=== PATIENT | female | born 1940 | race American Indian/Alaskan Native ===

== ENCOUNTER 2018-05-06 19:43 | Inpatient (IN) | payer MEDICARE, OTHER ==
[~2018-05-06] VITALS: Ht 165.1 cm; Wt 68.0 kg
[~2018-05-06 19:43] MED LIST: ALENDRONATE SOD70 MG PO; ALLEGRA ALLERG180 MG PO; AROMASIN25 MG PO; ASPIRIN325 MG PO; BETAMETHASONE D15 G2 TOP; BISMATROL262 MG PO; CALCIUM + VITA1 EAC1 PO; COLACE100 MG PO; CRESTOR10 MG PO; CYANOCOBAL1000 MCG/M IM; DOXYCYCLINE HY100 MG PO; FOLIC ACID1 MG PO; GLIPIZIDE XL5 MG PO; HAIR, SKIN & N1 EACH PO; HYDROCHLOROTHIA25 MG PO; JANUMET 50-1,01 EACH PO; LISINOPRIL40 MG PO; LOTRIMIN15 GM TP; MACROBID 100 M100 MG PO; MAG-OXIDE400 MG PO; METHOTREXATE2.5 MG PO; NORCO 5-325 TA1 EACH PO; OTEZLA30 MG PO; PERCOCET 7.5-31 EACH PO; PLAVIX75 MG PO; PRADAXA75 MG; PRILOSEC20 MG PO; PSEUDOEPHEDRINE60 MG PO; SYNTHROID25 MCG PO; VITAMIN B122500 MCG PO; VITAMIN D5000 UNIT PO; ZESTRIL20 MG PO
--- NOTE | 2018-05-07 00:10 | NUR ---
PT ADMITTED TO CCU AT 2255. IS ALERT ORIENTED X3. DENIES PAIN OR NAUSEA AT THIS TIME. DOES STATE IS COLD AND GIVEN WARM BLANKET. NS STARTED AT 250ML/HR, LEVAQUIN STARTED. LEVOPHED WAS STARTED AT 2310 AT 5MCG/MIN INCREASED TO 6 MCG/MIN AT 2330 BP CONT TO BE DEC. GIVEN WATER WITHOUT PROBLEM. T 100.9 GIVEN 650MG TYLENOL PO. DR WOODY GIVEN UPDATE AND FLUIDS INC TO GIVEN THIS L NS NOW.
--- NOTE | 2018-05-07 01:23 | NUR ---
PT DENIES NEEDS TO VOID. BLADDER SCANNED FOR 74ML. WILL HOLD STROUD FOR NOW AND CONT IVF.
--- NOTE | 2018-05-07 02:19 | NUR ---
PT RESTING. CONT ON LEVOPHED AT 6MCG/MIN.
--- NOTE | 2018-05-07 03:06 | NUR ---
SLEEPING. LEVOPHED DEC TO 5MCG/MIN. BP 108/56.
--- NOTE | 2018-05-07 04:13 | NUR ---
AWAKENED FOR ASSESSMENT. DENIES NEED TO VOID. SCANNED BLADDER FOR 195ML. DR WOODY NOTIFIED. WILL CONT IFV AT 250ML/HR.
--- NOTE | 2018-05-07 06:05 | NUR ---
LEVOPHED TITRATED TO 3MCG THEN OFF AT 0500. BP NOW 88/49 AND LEVOPHED RESTARTED AT 4MCG/MIN. PT SLEEPING.
--- NOTE | 2018-05-07 06:41 | NUR ---
RESTFUL, LAB DRAWN. LEVOPHED AT 2MCG/MIN.
--- NOTE | 2018-05-07 07:12 | EKG ---
[facility] [address] [place] [address] Signed Sinus tachycardia with occasional ventricular-paced complexes and premature atrial complexes with aberrant conduction Left axis deviation Minimal voltage criteria for LVH, may be normal variant Inferior-posterior infarct , age undetermined Anterior infarct , age undetermined Abnormal ECG No previous ECGs available Confirmed by LUPE WOODY MD ([id number]) on 05/07/2018 7:11:52 AM Electronically Signed By: LUPE WOODY MD 05/07/18 0712 PATIENT NAME: MIRIAN REDD Electrocardiogram DATE OF : 44 PHYSICIAN: LUPE WOODY MD REPORT #: [id number] REPORT IS CONFIDENTIAL AND NOT TO BE RELEASED WITHOUT AUTHORIZATION
--- NOTE | 2018-05-07 07:30 | NUR ---
report recieved. IS RESTFUL IN BED, DENIES PAIN, NAUSEA, SHORTNESS OF BREATH. BREAKFAST ORDERED. LEVOPHED GTT AT 2 MCG/MIN. IVF INFUSING AT 250 ML/HR.
--- NOTE | 2018-05-07 08:00 | NUR ---
ASSESSMENT DONE. DR. WOODY HERE TO SEE PATIENT. ROUTINE MEDS GIVEN.
--- NOTE | 2018-05-07 08:30 | NUR ---
SITTING UP IN BED FOR BREAKFAST, ACCUCHECK-81.
--- NOTE | 2018-05-07 08:39 | NUR ---
DR WOODY AWARE ON LABS.
--- NOTE | 2018-05-07 09:08 | NUR ---
PATIENT SITTING UP IN BED VISITING WITH FAMILY MEMBERS.
--- NOTE | 2018-05-07 09:45 | NUR ---
RESTFUL. RESP EQUAL AND NON-LABORED. HAS MILD NON-PRODUCTIVE COUGH.
--- NOTE | 2018-05-07 10:40 | NUR ---
UP TO COMMODE WITH ASSIST TO EXPELL URINE WITH SMALL STOOL, IS VERY WEAK ON FEET. DENIES DIZZINESS. SPONGE BATH GIVEN WHILE UP.
--- NOTE | 2018-05-07 10:50 | NUR ---
BACK TO BED WITH ASSIST. REMAINS ON LEVOPHED GTT AT 2 MCG/MIN INFUSING TO RAC.
--- NOTE | 2018-05-07 12:00 | NUR ---
LEVOPHED GTT DECREASED TO 1 MCG/MIN. ASSESSMENT DONE. PATIENT IS TIRED, DENIES PAIN.
--- NOTE | 2018-05-07 14:30 | NUR ---
BP-102/55 (67). LEVOPHED GTT TURNED OFF.
--- NOTE | 2018-05-07 15:00 | NUR ---
UP TO CHAIR WITH ASSIST, DENIES DIZZINESS.
--- NOTE | 2018-05-07 16:25 | NUR ---
IVF DECREASED TO 75 ML/HR PER DR. DAMON ORDERS.
--- NOTE | 2018-05-07 16:35 | NUR ---
DR. DAMON UPDATED ON PATIENT VITAL SIGNS, IS AWARE THAT LEVOPHED GTT OFF AT 1500.
--- NOTE | 2018-05-07 18:00 | NUR ---
UP TO COMMODE TO HAVE MIXED URINE WITH STOOL. TOTAL OUTPUT 200 ML.
--- NOTE | 2018-05-07 20:19 | NUR ---
RESTING IN BED, NO C/O, DENIES PAIN OR NAUSEA. EXPLAINED THAT THE SOURCE OF SEPSIS WAS STILL UNKOWN. GIVEN SODA, IS VISITING WITH FAMILY.
--- NOTE | 2018-05-07 21:30 | NUR ---
BS 132. PT STATES SHE WILL NEED TO GO TO BR IN A LITTLE WHILE. NO OTHER CHANGES.
--- NOTE | 2018-05-07 23:07 | NUR ---
PT DID EAT SMALL AMT OF RICE FROM FAMILIES TAKE OUT. UP TO BEDSIDE COMMODE WITH 1 PERSON ASSIST. PT IS VERY WEAK. STATES THIS WEAKNESS STARTED WHEN SHE BECAME SICK. VOIDED 150ML DARK, TEA COLORED URINE. DID HAVE DRY COUGH WHILE UP.
--- NOTE | 2018-05-08 00:49 | NUR ---
PT NOTED TO NOT BE SLEEPING. GIVEN 650MG TYLENOL FOR COMFORT AND TO HELP WITH SLEEP. STATES NOSE IS SOMEWHAT STUFFY.
--- NOTE | 2018-05-08 01:31 | NUR ---
SLEEPING AT THIS TIME.
--- NOTE | 2018-05-08 03:59 | NUR ---
PT AWAKE, ASSESSMENT DONE. HAS NO C/O.
--- NOTE | 2018-05-08 06:05 | NUR ---
AWAKE, UP TO BSC TO VOID TEA COLORED URINE. STRONGER GETTING OUT OF BED THIS TIME, STATES SHE FEELS LESS SHAKEY. HAS APPETITE AND IS LOOKING FORWARD TO BREAKFAST.
--- NOTE | 2018-05-08 07:30 | NUR ---
report recieved. PT IS RESTFUL IN BED. DENIES PROBLEMS.
--- NOTE | 2018-05-08 07:45 | NUR ---
UP TO CHAIR FOR BREAKFAST. IS STRONGER ON FEET TODAY.
--- NOTE | 2018-05-08 08:05 | NUR ---
AWARE OF LABS, AND U/O.
--- NOTE | 2018-05-08 08:34 | NUR ---
IVF INFUSING AT 75 ML/HR. IS IN CHAIR WATCHING TV. TOOK BREAKFAST WELL.DENIES NAUSEA, PAIN.
--- NOTE | 2018-05-08 09:10 | NUR ---
AMBULATED IN HALLWAY USING WALKER. WALKED FROM ROOM 128 TO JUST PAST ROOM 130 THEN BACK TO ROOM. TOLERATED WELL. STATES LEGS ARE TIRED AND IS SLIGHTLY SHORT OF BREATH. BACK TO BED.
--- NOTE | 2018-05-08 09:50 | NUR ---
DR. DAMON HERE TO SEE PATIENT, ORDERS RECIEVED. CT OF ABD/PELVIS ORDERED.
--- NOTE | 2018-05-08 10:00 | NUR ---
ORAL CONTRAST GIVEN.
--- NOTE | 2018-05-08 12:00 | NUR ---
ASSESSMENT DONE, CONT TO TAKE CONTRAST.
--- NOTE | 2018-05-08 13:10 | NUR ---
TO CT VIA BED, NURSING WEB DESIGNER WITH PATIENT.
--- NOTE | 2018-05-08 13:40 | NUR ---
RETURN TO ROOM 129. TOEL[address] CT WELL.
--- NOTE | 2018-05-08 14:20 | NUR ---
AMBULATED TO SHOWER.
--- NOTE | 2018-05-08 15:00 | NUR ---
TOLERATED SHOWER WELL.
--- NOTE | 2018-05-08 15:08 | NUR ---
Walked pt. over from ccu to room 113 at 1505. Got her settled in bed with a warm blanket. vital signs stable and pt is in good spirits. Got her dinner ordered for her. call light in reach.
--- NOTE | 2018-05-08 15:10 | NUR ---
AMBULATED TO ROOM 113 FROM SHOWER. REPORT GIVEN.
--- NOTE | 2018-05-08 16:08 | NUR ---
pt arrived to room 113 from ccu at 1530. at bedside. no needs at this time. patient awake, sitting up in bed watching television.
--- NOTE | 2018-05-08 18:44 | NUR ---
PATIENT IS ALERT AND ORIENTED. 1 PA, FWW. SALINE LOCKED. ACCU CHECK. BLOOD GLUCOSE CHECKED AT 1700, B. SLOW TO RESPOND TO ANSWERS. CULTURES PENDING. EDEMA IN LOWER EXTREMITIES. NO VOID SINCE TRANSFER.
--- NOTE | 2018-05-08 19:15 | NUR ---
IN ROOM FOR REPORT, PT IS AWAKE IN BED. SHE DENIES NEEDS AT THIS TIME. CALL LIGHT IS WITHIN REACH.
--- NOTE | 2018-05-08 22:15 | NUR ---
IN ROOM TO ASSESS PT, HER BG WAS 73. PT DENIES ANY SX AND GRAPES SHE HAD IN [place] WERE GIVEN TO HER A SNACK. SHE DENIES PAIN AND DIZZINESS AND REPORTS HER WEAKNESS IS IMPROVING. SHE IS SLOW TO RESPOND WHEN ASKED QUESTIONS BUT IS ALERT AND ORIENTED. SHE REPORTS NUMBESS IN HER TOES AT BASELINE. CALL LIGHT IS WITHIN REACH AND SHE DENIES FURTHER NEEDS. FRESH ICEWATER IS AT BEDSIDE AND SHE HAS VISITORS IN THE ROOM.
--- NOTE | 2018-05-08 23:16 | NUR ---
ASSISTED PT TO BATHROOM, WITH FWW. NEEDED HELP GETTING RIGHT LEG OFF BED, AND PUTTING BOTH LEGS INTO BED. CALL LIGHT WITHIN REACH, LIGHTS OFF. NO OTHER NEEDS AT THIS TIME.
--- NOTE | 2018-05-09 00:55 | NUR ---
PT IS AWAKE IN BED, SHE STATES SHE IS CONGESTED AND HAVING TROUBLE SLEEPING. ORDERED NASAL SPRAY AND WILL ADMINISTER ONCE AVAILABLE FROM PHARMACY.
--- NOTE | 2018-05-09 02:56 | NUR ---
PT IS RESTING WITH EYES CLOSED, RESPIRATIONS ARE EVEN AND NONLABORED. CALL LIGHT IS WITHIN REACH.
--- NOTE | 2018-05-09 03:47 | NUR ---
PT REPORTED BEING COLD, TOOK TEMP WHICH IS 97.3 AND BROUGHT HER A WARM BLANKET. PT DENIES PAIN AT THIS TIME. CALL LIGHT IS WITHIN REACH.
--- NOTE | 2018-05-09 05:34 | NUR ---
PT WAS TRANSFERED FROM CCU YESTERDAY. SHE DENIES PAIN. IV'S ARE SL WITH IV LEVAQUIN DAILY. SHE IS A 1PA WITH FWW. SHE HAS AN ADA DIET WITH ACCUCHKEHINDE BECERRIL, HER BS WAS 73 LAST NIGHT AND SHE WAS GIVEN GRAPES A SNACK. SHE IS VOIDING WELL. SHE COMPLAINED OF NASAL CONGESTION WAS GIVEN NASAL SPRAY. SHE HAS PITTING EDEMA IN BILAT LE.
--- NOTE | 2018-05-09 06:30 | NUR ---
IN ROOM TO ADMINISTER ABX. FRESH WATER IS AT BEDSIDE AND PT DENIES NEEDS AT THIS TIME. CALL LIGHT IS WITHIN REACH.
--- NOTE | 2018-05-09 07:53 | NUR ---
REPORT FROM FUNMI TO. PT BS LOW WHILE RNS IN ROOM, GIVEN APPLE JUICE AND BREAKFAST. WILL REASSESS IN 15MIN.
--- NOTE | 2018-05-09 08:15 | NUR ---
PT GIVEN MEDS AND ASSESSMENT DONE. PT BS 85 NOW, CONTINUE TO MONITOR.
--- NOTE | 2018-05-09 11:02 | NUR ---
ROUNDED ON PATIENT FOR MEDICATION ADMINISTRATION. RESTING COMFORTABLY IN CHAIR. POSSESSIONS AT BEDSIDE.
--- NOTE | 2018-05-09 11:52 | NUR ---
pt sitting up in recliner. alert and oriented. blood sugar checked 69, lunch at bedside. no sliding scale insulin to be administered at this time
--- NOTE | 2018-05-09 12:56 | NUR ---
ROUNDED ON PATIENT AND ASSESSED BG DUE TO A PREVIOUS LOW BG. REASSESSED B. PATIENT SITTING UP IN CHAIR WITH VISITORS AT BEDSIDE. WILL CONTINUE TO MONITOR.
--- NOTE | 2018-05-09 13:01 | NUR ---
PT SITTING IN CHAIR-SEEMED EITHER BEWILDERED, PREOCCUPIED OR SUPPRISED BY MY VISIT. VERY SHORT ANSWERS TO MY QUESTIONS. EXTENDED A BLESSING, WILL CONTINUE TO FOLLOW
[2018-05-09] MEDS ORDERED: ASPIRIN EC81 MG PO (14:22)
[2018-05-09] MEDS ORDERED: ENSTILAR 0.005%60 GM TOP (14:23)
[2018-05-09] MEDS ORDERED: CALCIUM 600 +1 EAC3 PO (14:25)
[2018-05-09] MEDS ORDERED: CERAVE355 ML TOP (14:26)
[2018-05-09] MEDS ORDERED: VITAMIN B-12500 MCG PO (14:27)
[2018-05-09] MEDS ORDERED: FLONASE ALLERG9.9 ML NAS (14:30)
[2018-05-09] MEDS ORDERED: TALTZ AUTO80 MG/1 ML SUB-Q (14:33)
--- NOTE | 2018-05-09 14:39 | NUR ---
MED REC COMPLETE WITH [facility] MEDICATION RECORDS.
--- NOTE | 2018-05-09 15:53 | NUR ---
ROUNDED ON PATIENT FOR AFTERNOON ASSESSMENT. RESTING COMFORTABLY IN BED WITH FAMILY AT BEDSIDE. NO COMPLAINTS OF PAIN. CALL LIGHT WITHIN REACH. POSSESSIONS AT BEDSIDE. WEARING DENTURES. WILL CONTINUE TO MONITOR.
--- NOTE | 2018-05-09 17:30 | NUR ---
BLOOD SUGAR LOW AGAIN AT 69. GIVEN PUDDING AND JELLO, HAS DINNER AT BEDSIDE. WILL CONTINUE TO MONITOR.
--- NOTE | 2018-05-09 18:41 | NUR ---
PATIENT IS ALERT AND ORIENTED X4. ROOM AIR. SALINE LOCKED. 1PA, FWW. ADA DIET. ACCU CHECKS WITH MEALS, CONTROLLED WITH SLIDING SCALE. BG RUNNING LOW (50-60'S) TODAY, SNACKS PROVIDED TO INCREASE BG WITHIN NORMAL RANGE. LEVAQUIN ADMINISTERED.
--- NOTE | 2018-05-09 19:10 | NUR ---
RECEIVED REPORT FROM DAY SHIFT RN. PATIENT IS RESTING IN BED WATCHING TV. FAMILY IN THE ROOM. NO NEEDS NOTED. CALL LIGHT IN REACH.
--- NOTE | 2018-05-09 20:55 | NUR ---
PATIENT ASSESEMENT COMPLETED. PATIENTS IV IS INFUSING. NO SS AT THIS TIME, BS CHECK WNL. PATIENT IS [place]. PATIENT DENIES ANY NEEDS AT THIS TIME. PATIENT IS FORGETFUL. BED ALARM IS ON FOR SAFETY. CALL LIGHT IN REACH.
--- NOTE | 2018-05-09 22:54 | NUR ---
PATIENT ASSISTED TO THE RESTROOM BY CHIEF DISPATCHER SERVICE. PATIENT WAS ABLE TO VOID AND HAVE BM. PATIENT IS BACK IN BED RESTING. BED ALARM ON FOR SAFETY. CALL LIGHT IN REACH.
--- NOTE | 2018-05-09 23:43 | NUR ---
PATIENT IS RESTING IN BED WITH EYES CLOSED, RR 17. CALL LIGHT IN REACH.
--- NOTE | 2018-05-10 01:44 | NUR ---
PATIENT IS RESTING IN BED WITH EYES CLOSED, RR 17. CALL LIGHT IN REACH. BED AALRM ON FOR SAFETY.
--- NOTE | 2018-05-10 03:07 | NUR ---
PATIENT IS RESTING IN BED WITH EYES CLOSED, RR 18. CALL LIGHT IN REACH.
--- NOTE | 2018-05-10 05:27 | NUR ---
PATIENT RESTED WELL THROUGHOUT THE SHIFT. PATIENT IS ON AN ADA DIET AND TOLERATIN GIT WELL. PATIENT IS A 1PA W/FWW. PATIENT HAS IV INFUSING. PATIENT DENIES ANY PAIN OR NAUSEA. PATIENT IS AAOX3 AND USES CALL LIGHT APPROPRIATELY. URINE OUPUT QS.
--- NOTE | 2018-05-10 06:27 | NUR ---
PATIENT ASSESMENT COMPLETED. PATIENT DENIES ANY NEEDS AT THIS TIME. CALL LIGHT IN REACH. PATIENT IS RESTIGN IN BED WATCHING TV.
--- NOTE | 2018-05-10 07:31 | NUR ---
BEDSIDE REPORT FROM ERMELINDA CHOUDHARY.. PT RESTING IN BED EYES CLOSED RR 18 NO DISTRESS NOTED PT APPEARS TO BE SLEEPING.
--- NOTE | 2018-05-10 07:40 | NUR ---
PATIENT SITTING UP IN BED. PATIENT WASHED HANDS AND FACE. ORAL CARE DONE. PATIENT UP TO CHAIR WITH FWW ONE PERSON ASSIST. CALL LIGHT IN REACH. CHAIR ALARM CALL LIGHT IN REACH.
--- NOTE | 2018-05-10 08:08 | NUR ---
PT SITTING UP IN RECLINER AT THIS TIME EATING BREAKFAST.
--- NOTE | 2018-05-10 11:38 | NUR ---
PT AMBULATED IN HALLS STANDBY ASSIST WITH FWW, FULL LAP OF M/S UNIT. PT HAS STABLE GAIT TOLERATED ACTIVITY WELL
--- NOTE | 2018-05-10 15:17 | NUR ---
ACCU CHECK AT THIS TIME PER MD REQUEST 76.
--- NOTE | 2018-05-10 17:07 | NUR ---
PT HAS BEEN UP TO CHAIR, WALKED IN HALLS SBA WITH FWW. SHE HAS REPORTED NO PAIN. APPETITE HAS IMPROVED TODAY. BG HAS BEEN 75-80 TODAY. V/S STABLE NO ISSUE OVER SHIFT. POSSIBLE DISCHARGE TOMORROW
--- NOTE | 2018-05-10 18:37 | NUR ---
PT UP AMBULATED IN HALLS 3 LAPS OF M/S UNITS. SHE REPORTS SHE FEELS STRONGER NOW THEN WHEN UP WALKING [employer]. TOLERATED ACTIVITY WELL
--- NOTE | 2018-05-10 19:05 | NUR ---
ROUNDED CHARGE. PATIENT IS RESTING IN BED WATCHING TV. PATIENT DENIES ANY COMMENTS, QUESTIONS, OR CONCERNS. CALL LIGHT IN REACH.
--- NOTE | 2018-05-10 19:30 | NUR ---
FINISHING UP SHIFT REPORT. PATIENT RSTING QUIETLY IN BED WATCHING TV. PATIENT IS HAVING NO DISCOMFORT AND HAS NO NEEDS AT THIS TIME.
--- NOTE | 2018-05-10 21:30 | NUR ---
PATIENT SITTING QUIETLY RESTING IN BED WATCHING TV. NO COMPLAINTS OR NEEDS AT THIS TIME. WATER AND WARM BLANKETS OFFERED. CALL LIGHT IN REACH.
--- NOTE | 2018-05-10 23:17 | NUR ---
ACCOMPANIED PATIENT AMBULATE AROUND THE HALLWAY X2. PATIENT IS BACK IN BED. CALL LIGHT AND SIDE TABLE IN REACH.
--- NOTE | 2018-05-11 01:44 | NUR ---
PATIENT RESTING QUIETLY SITTING SLIGHTLY INCLINED IN BED. SNOING SOFTLY, EYES, CLOSED, RESPIRATIONS EVEN AND REGULAR.
--- NOTE | 2018-05-11 02:25 | NUR ---
RESPIRATIONS 16 AND REGULAR, EYES CLOSED, CALL LIGHT IN REACH, RESTING QUIETLY.
--- NOTE | 2018-05-11 02:59 | NUR ---
PATIENT WAS COMPLAINING OF SOME RIGHT HEAL DISCOMFORT. LOTION AND MASSAGE GIVEN TO BOTH LOWER LEGS AND HEAL PROTECTORS REAPPLIED AND PATIENT WAS FEELING BETTER AND WAS GOING TO TRY AND GET SOME MORE SLEEP.
--- NOTE | 2018-05-11 07:34 | NUR ---
REPORT RECEIVED FROM FUNMI STEELE. PT AWAKE AND STATES SHE HAD A GOOD NIGHT. SLEPT WELL AND IS HOPING TO GO HOME. BS HAVE BEEN BETTER THE LAST SHIFT. BS THIS MORNING 81.
--- NOTE | 2018-05-11 07:48 | NUR ---
BROUGHT HER BREAKFAST IN ALSO SET HER UP FOR HER BREAKFAST. GOT HER A WARM WASH CLOTH AND SHE WASHED HER FACE. NOW SHE IS EATING HER BREAKFAST. IF SHE CAN TAKE A SHOWER SHE WOULD LIKE ONE TODAY.
[2018-05-11] MEDS ORDERED: DOXYCYCLINE HY100 MG PO (08:25)
[2018-05-11] MEDS ORDERED: FREESTYLE LITE1 EAC1 XX (08:55)
[2018-05-11] MEDS ORDERED: FREESTYLE LITE1 EAC2 MISC (08:57)
[2018-05-11] MEDS ORDERED: FREESTYLE LANC1 EACH MISC (08:58)
--- NOTE | 2018-05-11 09:42 | NUR ---
ADMINISTERED K REPLACEMENT. PT GETTING UP TO THE RESTROOM WITH ALLAN CHAU. VS STABLE. DENIES FURTHER CONERNS.
== END 2018-05-11 10:20 | disposition home or self-care (01) | DRG 872 ==
LOC: ED 19:43 → MS 21:46 → CCU 21:46 → MS 05-08 15:01
PROVIDERS: ADMIT Internal Medicine
DX: A41.51 Sepsis due to Escherichia coli [E. coli] (principal); K74.60 Unspecified cirrhosis of liver; I10 Essential (primary) hypertension; L40.9 Psoriasis, unspecified; K76.0 Fatty (change of) liver, not elsewhere classified; C50.911 Malignant neoplasm of unspecified site of right female breast; E11.649 Type 2 diabetes mellitus with hypoglycemia without coma; T36.8X5A Adverse effect of other systemic antibiotics, initial encounter; Y92.239 Unspecified place in hospital as the place of occurrence of the external cause; E83.42 Hypomagnesemia; E83.51 Hypocalcemia; Z88.1 Allergy status to other antibiotic agents; Z88.0 Allergy status to penicillin; Z88.2 Allergy status to sulfonamides; Z79.82 Long term (current) use of aspirin; Z79.83 Long term (current) use of bisphosphonates; Z79.811 Long term (current) use of aromatase inhibitors; Z79.51 Long term (current) use of inhaled steroids; Z79.899 Other long term (current) drug therapy; Z86.73 Personal history of transient ischemic attack (TIA), and cerebral infarction without residual deficits
CPT/HCPCS: 36415; 51798; 71045; 74177; 80048; 80053; 81001; 83605; 83735; 84100; 85025; 87040; 87077; 87186; 93005; 93010; 96374; 99285; J0610; J1650; J1720; J1956; J2405; J3475; J7030; J7120; Q9967

== ENCOUNTER 2018-12-18 18:36 | Emergency (ER) | payer OTHER ==
[~2018-12-18] VITALS: Ht 165.1 cm; Wt 59.0 kg
--- OUTSIDE RECORDS SUMMARY | ~2018-12-18 | XMS | Clinical Summary ---
Demographics + + + | Address | [address] | | | [place] [address] | + + + | Home Phone | | + + + | Preferred Language | Unknown | + + + | Marital Status | | + + + | Bahai Affiliation | Unknown | + + + | Race | Unknown | + + + | Ethnic Group | Unknown | + + + Author + + + | Author | [facility] | + + + | Organization | [facility] | + + + | Address | Unknown | + + + | Phone | Unavailable | + + + Support + + +---------+ + | Name | Relationship | Address | Phone | + + +---------+ + | Cristian Cortez | LITZY | Unknown | | + + +---------+ + | Aashish Cortez | ECON | Unknown | | + + +---------+ + Care Team Providers + +------+ + | Care Cop Examiner Name | Role | Phone | + +------+ + | Casimiro Lopez MD | PP | | + +------+ + Allergies + + + + + + | Active Allergy | Reactions | Severity | Noted | Comments | | | | | Date | | + + + + + + | Amoxicillin | Swelling | Medium | 04/18/20 | | | | | | 16 | | + + + + + + | Cephalosporins | Swelling | Medium | /20 | | | | | | 16 | | + + + + + + | Eggs Or Egg-Derived | Nausea Only | Low | 08/14/20 | | | Products | | | 16 | | + + + + + + | Erythromycin | Swelling | Medium | 08/14/20 | | | | | | 16 | | + + + + + + | Penicillins | Swelling | Medium | 08/14/20 | | | | | | 16 | | + + + + + + | Sulfa Antibiotics | Swelling | Medium | 08/14/20 | | | | | | 16 | | + + + + + + Current Medications + + +--------+---------+------+------+-------+ | Prescription | Sig. | Disp. | Refills | Star | End | Statu | | | | | | t | Date | s | | | | | | Date | | | + + +--------+---------+------+------+-------+ | levothyroxine | Take 25 mcg by mouth | | | | | Activ | | (SYNTHROID) 25 MCG | every morning | | | | | e | | tablet | before breakfast. | | | | | | + + +--------+---------+------+------+-------+ | omeprazole | Take 20 mg by mouth | | | | | Activ | | (PRILOSEC) 20 MG | every morning before | | | | | e | | capsule | breakfast. | | | | | | + + +--------+---------+------+------+-------+ | exemestane | Take 25 mg by mouth | | | | | Activ | | (AROMASIN) 25 MG | daily. | | | | | e | | tablet | | | | | | | + + +--------+---------+------+------+-------+ | alendronate | Take 70 mg by mouth | | | | | Activ | | (FOSAMAX) 70 MG | every 7 days. Take | | | | | e | | tablet | in the morning with | | | | | | | | a full glass of | | | | | | | | water, on an empty | | | | | | | | stomach, and do not | | | | | | | | take anything else | | | | | | | | by mouth or lie down | | | | | | | | for the next 30 | | | | | | | | min. | | | | | | + + +--------+---------+------+------+-------+ | bismuth | Take 262 mg by mouth | | | | | Activ | | subsalicylate (PEPTO | 4 (four) times | | | | | e | | BISMOL) 262 MG | daily before meals | | | | | | | chewable tablet | and nightly. | | | | | | + + +--------+---------+------+------+-------+ | apremilast | Take 30 mg by mouth | | | | | Activ | | (OTEZLA) 30 MG | 2 (two) times daily. | | | | | e | | tablet | | | | | | | + + +--------+---------+------+------+-------+ | lisinopril | Take 40 mg by mouth | | | | | Activ | | (ZESTRIL) 40 MG | daily. | | | | | e | | tablet | | | | | | | + + +--------+---------+------+------+-------+ | rosuvastatin | Take 10 mg by mouth | | | | | Activ | | (CRESTOR) 10 MG | nightly. | | | | | e | | tablet | | | | | | | + + +--------+---------+------+------+-------+ | clopidogrel | Take 75 mg by mouth | | | | | Activ | | (PLAVIX) 75 MG | daily. | | | | | e | | tablet | | | | | | | + + +--------+---------+------+------+-------+ | cyanocobalamin | Inject into the | | | | | Activ | | 1000 MCG/ML | muscle. | | | | | e | | injection | | | | | | | + + +--------+---------+------+------+-------+ | Vit-Fe | Take 1 tablet by | 30 | 1 | 08/1 | | Activ | | Fumarate-FA | mouth daily. | tablet | | 8/20 | | e | | ( PLUS | | | | 16 | | | | VITAMIN) 27-1 MG | | | | | | | | tablet | | | | | | | + + +--------+---------+------+------+-------+ | ferrous gluconate | Take 1 tablet by | 30 | 1 | 08/1 | | Activ | | (FERGON) 324 MG | mouth daily with | tablet | | 8/20 | | e | | tablet | breakfast. | | | 16 | | | + + +--------+---------+------+------+-------+ | aspirin EC 81 MG | Take 1 tablet by | 30 | 1 | 08/1 | | Activ | | EC tablet | mouth daily with | tablet | | 8/20 | | e | | | breakfast. | | | 16 | | | + + +--------+---------+------+------+-------+ Active Problems + + + | Problem | Noted Date | + + + | Acute post-hemorrhagic anemia | 04/22/2016 | + + + | Brain aneurysm | 04/18/2016 | + + + | Unspecified hypothyroidism | 04/18/2016 | + + + | HTN (hypertension) | 04/18/2016 | + + + Resolved Problems + + + + | Problem | Noted | Resolved | | | Date | Date | + + + + | Acute GI hemorrhage | 04/18/20 | | | | 16 | 6 | + + + + Social History + +-------+ +--------+------+ | Tobacco Use | Types | Packs/Day | Years | Date | | | | | Used | | + +-------+ +--------+------+ | Never Smoker | | | | | + +-------+ +--------+------+ + + +---------+ + | Alcohol Use | Drinks/We | oz/Week | Comments | | | ek | | | + + +---------+ + | No | | | | + + +---------+ + + + + | Sex Assigned at | Date Recorded | | | | + + + | Not on file | | + + + Last Filed Vital Signs + + + + | Vital Sign | Reading | Time Taken | + + + + | Blood Pressure | 152/76 | 05/13/2016 8:30 AM PDT | + + + + | Pulse | 68 | 05/13/2016 8:30 AM PDT | + + + + | Temperature | 36.9 C (98.4 F) | 04/22/2016 11:24 AM PDT | + + + + | Respiratory Rate | 16 | 04/22/2016 11:24 AM PDT | + + + + | Oxygen Saturation | 100% | 05/13/2016 8:30 AM PDT | + + + + | Inhaled Oxygen | - | - | | Concentration | | | + + + + | Weight | 74.9 kg (165 lb 2 | 04/22/2016 3:06 AM PDT | | | oz) | | + + + + | Height | 165.1 cm (5' 5") | 04/18/2016 4:37 PM PDT | + + + + | Body Mass Index | 27.48 | 04/22/2016 3:06 AM PDT | + + + + Plan of Treatment + + + + + | Health Maintenance | Due Date | Last Done | Comments | + + + + + | Vaccine: | | | | | Dtap/Tdap/Td (1 - | 1 | | | | Tdap) | | | | + + + + + | Vaccine: Zoster (1 | | | | | of 2) | 2 | | | + + + + + | DEXA SCAN SCREENING | | | | | | 7 | | | + + + + + | Vaccine: | | | | | Pneumococcal 65+ | 7 | | | | Low/Medium Risk (1 | | | | | of 2 - PCV13) | | | | + + + + + | Vaccine: Influenza | | | | | (Season Ended) | 9 | | | + + + + + Results Not on filefrom Last 3 Months Insurance + +--------+ +------+-------+ + | Payer | Benefi | Subscriber | Type | Phone | Address | | | t Plan | ID | | | | | | / | | | | | | | Group | | | | | + +--------+ +------+-------+ + | MEDICARE | MEDICA | [id number] | | | [address] | | | RE | | | | [place] [address] | | | PART A | | | | | | | ONLY | | | | | + +--------+ +------+-------+ + | [employer] | YELLOW | [id number] | | | | | PLANS | [place] | | | | | + +--------+ +------+-------+ + + +--------+ +--------+ + + | Guarantor Name | Accoun | Relation to | Date | Phone | Billing Address | | | t Type | Patient | of | | | | | | | | | | + +--------+ +--------+ + + | MIRIAN CORTEZ | Person | Self | [birth year] | Home: | [address] | | | al/Fam | | 1940 | [phone] | [place] [address] | | | david | | | [phone] | | + +--------+ +--------+ + +
--- OUTSIDE RECORDS SUMMARY | ~2018-12-18 | XMS | Clinical Summary ---
Demographics + + + | Address | [address] | | | [place] [address] | + + + | Home Phone | | + + + | Preferred Language | Unknown | + + + | Marital Status | | + + + | Baptism Affiliation | LEROY | + + + | Race | or | + + + | Ethnic Group | Not or | + + + Author + + + | Author | [facility] | + + + | Organization | [facility] | + + + | Address | Unknown | + + + | Phone | Unavailable | + + + Support + + + + + | Name | Relationship | Address | Phone | + + + + + | Cristian Cortez | ECON | [address] | | | | | [place] | | | | | [phone] | | + + + + + | Rose Gonzalez | ECON | Unknown | | + + + + + | Aashish Cortez | ECON | Unknown | | + + + + + Care Team Providers + +------+ + | Care Putty Patcher Name | Role | Phone | + +------+ + | Casimiro Lopez MD | PP | | + +------+ + Source Comments [facility] is fully live on both EpicCare Ambulatory and EpicCare InPatient.[facility] Allergies + + + + + + | Active Allergy | Reactions | Severity | Noted | Comments | | | | | Date | | + + + + + + | Cephalosporins | Unknown | | 11/20/20 | | | | | | 15 | | + + + + + + | Egg | Unknown | | 11/20/20 | | | | | | 15 | | + + + + + + | Erythromycin | Angioedema | High | 11/20/20 | [facility] | | | | | 15 | clinic records - | | | | | | facial swelling | + + + + + + | Penicillin | Rash | | 07/25/20 | [facility] | | | | | 15 | clinic records | + + + + + + | Sulfa (Sulfonamide | Rash | | 07/25/20 | [facility] | | Antibiotics) | | | 15 | clinic records | + + + + + + | Tree Nut | Muscle Weakness | | 07/26/20 | Facial numbness, | | | | | 15 | per pt | + + + + + + Current Medications + + +--------+---------+------+------+-------+ | Prescription | Sig. | Disp. | Refills | Star | End | Statu | | | | | | t | Date | s | | | | | | Date | | | + + +--------+---------+------+------+-------+ | levothyroxine 25 | Take 25 mcg by mouth | | | | | Activ | | mcg oral tablet | before breakfast. | | | | | e | + + +--------+---------+------+------+-------+ | exemestane 25 mg | Take 25 mg by mouth | | | | | Activ | | oral tablet | once daily. | | | | | e | + + +--------+---------+------+------+-------+ | rosuvastatin 10 mg | Take 10 mg by mouth | | | | | Activ | | oral tablet | once daily in the | | | | | e | | | evening. | | | | | | + + +--------+---------+------+------+-------+ | apremilast 30 mg | Take 30 mg by mouth | | | | | Activ | | oral tablet | two times daily. | | | | | e | | | With food | | | | | | + + +--------+---------+------+------+-------+ | cyanocobalamin | Inject 1,000 mcg | | | | | Activ | | 1,000 mcg/mL | under the skin | | | | | e | | injection solution | (SUBC) every Tuesday. | | | | | | | | In clinic | | | | | | + + +--------+---------+------+------+-------+ | omeprazole 20 mg | Take 20 mg by mouth | | | | | Activ | | oral capsule,delayed | two times daily. | | | | | e | | release(DR/EC) | | | | | | | + + +--------+---------+------+------+-------+ | lisinopril 40 mg | Take 40 mg by mouth | | | | | Activ | | oral tablet | once daily at | | | | | e | | | bedtime. | | | | | | + + +--------+---------+------+------+-------+ | alendronate 70 mg | Take 70 mg by mouth | | | | | Activ | | oral | every seven days. | | | | | e | | tabletIndications: | ~~verify day of week | | | | | | | Decreased Bone Mass | with patient~~Take | | | | | | | Following Menopause, | with a full glass of | | | | | | | usually taking on | water 30 min. | | | | | | | Fridays | before food or other | | | | | | | | medication. Remain | | | | | | | | upright for at least | | | | | | | | 30 minutes. | | | | | | | | Indications: | | | | | | | | Post-Menopausal | | | | | | | | Osteoporosis, | | | | | | | | usually taking on | | | | | | | | Fridays | | | | | | + + +--------+---------+------+------+-------+ | clobetasol 0.05 % | Apply to affected | | | | | Activ | | topical ointment | area twice daily as | | | | | e | | | needed. For | | | | | | | | psoriasis Apply for | | | | | | | | up to 2 weeks. | | | | | | + + +--------+---------+------+------+-------+ | fexofenadine 180 | Take 180 mg by mouth | | | | | Activ | | mg oral tablet | once daily as | | | | | e | | | needed (allergies). | | | | | | + + +--------+---------+------+------+-------+ | acetaminophen 325 | Take 1-2 tablets by | | | 04/2 | | Activ | | mg oral tablet | mouth every six | | | 1/20 | | e | | | hours as needed. | | | 16 | | | + + +--------+---------+------+------+-------+ | senna-docusate | Take 1 tablet by | | | 04/2 | | Activ | | 8.6-50 mg oral | mouth two times | | | 1/20 | | e | | tablet | daily. Please take | | | 16 | | | | | this medication if | | | | | | | | also taking | | | | | | | | oxycodone as it can | | | | | | | | cause constipation | | | | | | + + +--------+---------+------+------+-------+ | bisacodyl 10 mg | Unwrap and insert 1 | | | 04/2 | | Activ | | rectal suppository | suppository rectally | | | 1/20 | | e | | | once daily as | | | 16 | | | | | needed for | | | | | | | | constipation (for no | | | | | | | | BM in past 2 days). | | | | | | + + +--------+---------+------+------+-------+ | polyethylene | Take 17 g by mouth | | | 04/2 | | Activ | | glycol 17 gram/dose | once daily as needed | | | 1/20 | | e | | oral | (for no BM for 2 | | | 16 | | | | powderIndications: | days). Indications: | | | | | | | constipation | CONSTIPATION | | | | | | + + +--------+---------+------+------+-------+ | oxyCODONE, | Take 1 to 2 tablets | 50 | 0 | 06/3 | | Activ | | immediate release, 5 | by mouth every four | tablet | | 0/20 | | e | | mg oral tablet | hours as needed for | | | 16 | | | | | severe pain. | | | | | | + + +--------+---------+------+------+-------+ | clopidogrel 75 mg | Take 1 tablet by | 90 | 1 | 06/3 | | Activ | | oral tablet | mouth once daily. | tablet | | 0/20 | | e | | | | | | 16 | | | + + +--------+---------+------+------+-------+ | ondansetron | Take 1 tablet by | 12 | 0 | 06/3 | | Activ | | (ZOFRAN, | mouth every twelve | tablet | | 0/20 | | e | | HYDROCHLORIDE,) 4 mg | hours as needed. | | | 16 | | | | oral tablet | | | | | | | + + +--------+---------+------+------+-------+ | vitamins, | Take by mouth. 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 Last Assessment & Plan: | | 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 [id number] neuro checksSBP <160Monitor | | groin site for bleeding/hematomaASA for life 325mgPlavix 75mg x | | 6 monthsDischarge home today | + + + + + | HTN (hypertension) | 12/22/2015 | + + + + + | Last Assessment & Plan: SBP goal <160 | | On lisinopril at home (held AM of surgery) | | PRN labetalol post-procedure | | Resume lisinopril today | + + + + + | Breast CA (HCC) | 12/22/2015 | + + + + + | Last Assessment & Plan: Hold home exemestane in immediate | | post-op periodHas been held 7 days pre-opResume when OK with NSGY | |Resume when OK with NSGY | + + + + + | Hypothyroidism | 12/22/2015 | + + + + + | Last Assessment & Plan: Continue home levothyroxine | + + + + + | GERD (gastroesophageal reflux disease) | 12/22/2015 | + + + + + | Last Assessment & Plan: Resume home omeprazole | + + + + + | History of DVT (deep vein thrombosis) with | 12/22/2015 | + + + + + | Last Assessment & Plan: No longer on anticoagulation | | SCDs for DVT prophylaxis | + + + + + | Psoriasis | 12/22/2015 | + + + + + | Last Assessment & Plan: Oral otezla (apremilast) has been | | held for 7 days prior to procedureResume on discharge | + + + + + | HLD (hyperlipidemia) | 12/22/2015 | + + + + + | Last Assessment & Plan: Takes Rosuvastatin at home, which is | | non-formulary at [facility] today so no need to | | supplement with alternative statin in NSICU | + + + + + | Stress hyperglycemia | 12/22/2015 | + + + + + | Last Assessment & Plan: SSI for CBG >140 | + + + + + | At risk for electrolyte imbalance | 12/22/2015 | + + + + + | Last Assessment & Plan: ICU repletion protocol | | Daily Renal Function Set | + + + + + | S/P tooth extraction | 12/22/2015 | + + + + + | Overview: 2 teeth extracted on 12/15; On Clindamycin until | | 12/25/15 Last Assessment & Plan: Continue Clindamycin 150mg | | q6hr post-op until 12/25/15 following dasha-op dosing of 600mg q8h | | for 24hAdd probiotic | + + + + + | RED CELL ANTIBODIES - allow additional time for crossmatch | 08/04/2015 | + + + + + | Overview: Patient is sensitized against red cell antigen "K". | | Approximately 90% of units are expected to be compatible. Allow | | at least 2-3 hours for completion of crossmatch. | + + + + + | Subarachnoid hemorrhage (HCC) | 07/25/2015 | + + + Family History + + +------+ + | Medical History | Relation | Name | Comments | + + +------+ + | Heart Attack | Father | | | + + +------+ + | Anesthesia | Neg Hx | | | + + +------+ + | Blood Disease | Neg Hx | | | + + +------+ + + +------+--------+ + | Relation | Name | Status | Comments | + +------+--------+ + | Father | | | | + +------+--------+ + Social History + + + +--------+------+ | Tobacco Use | Types | Packs/Day | Years | Date | | | | | Used | | + + + +--------+------+ | Former Smoker | Cigarettes | 0.1 | 3 | | + + + +--------+------+ + +---+---+---+ | Smokeless Tobacco: | | | | | Never Used | | | | + +---+---+---+ + + | Comments: social smoker, never very frequent; last smoked > 20 years ago | + + + + +---------+ + | Alcohol Use | Drinks/We | oz/Week | Comments | | | ek | | | + + +---------+ + | No | 1 | 0.6 | never a problem with alcohol | | | Standard | | | | | drinks or | | | | | | | | | | equivalen | | | | | t | | | + + +---------+ + + + + | Sex Assigned at | Date Recorded | | | | + + + | Not on file | | + + + Last Filed Vital Signs + + + + | Vital Sign | Reading | Time Taken | + + + + | Blood Pressure | 128/71 | 06/01/2017 1:30 PM PDT | + + + + | Pulse | 74 | 06/01/2017 2:30 PM PDT | + + + + | Temperature | 36.7 C (98.1 F) | 06/01/2017 8:46 AM PDT | + + + + | Respiratory Rate | 13 | 06/01/2017 2:00 PM PDT | + + + + | Oxygen Saturation | 100% | 06/01/2017 2:30 PM PDT | + + + + | Inhaled Oxygen | - | - | | Concentration | | | + + + + | Weight | 62.6 kg (138 lb) | 06/01/2017 8:46 AM PDT | + + + + | Height | 165.1 cm (5' 5") | 06/01/2017 8:46 AM PDT | + + + + | Body Mass Index | 22.96 | 06/01/2017 8:46 AM PDT | + + + + Plan of Treatment + + + + + | Health Maintenance | Due Date | Last Done | Comments | + + + + + | Pneumococcal (Adult) | | | | | (1 of 2 - PCV13) | 7 | | | + + + + + | Influenza (Flu) | | | | | vaccination (#1) | 8 | | | + + + + + Implants + +------+--------+ +--------+--------+--------+ | Implanted | Type | Area | Manufacture | Device | Expira | Model | | | | | r | | tion | / | | | | | | Identi | Date | Serial | | | | | | fier | | / Lot | + +------+--------+ +--------+--------+--------+ | Screw Bone 4mm 1.55mm 2.55mm | | Right: | [employer] | | | 04.503 | | Matrixneuro | | Head | | | | .104.0 | | Craniomaxillofacial Titanium | | | | | | 1 / / | | Self Drill Nonsterile - | | | | | | | | [id number]: Qty: 15 | | | | | | | | on 12/22/2015 by Marv Durand | | | | | | | | J, MD | | | | | | | + +------+--------+ +--------+--------+--------+ | Clip Aneurysm L-Shape Mini | | Right: | DOMINIQUE MORENO | | | 45.716 | | Titanium Permanent Sideward | | Brain | | | | / / | | Angled 5mm Max Opening 6.5mm | | | | | | | | Closing Force 110g/1.08n - | | | | | | | | [id number]: Qty: 1 on | | | | | | | | 12/22/2015 by Ophelia Frey, | | | | | | | | MD | | | | | | | + +------+--------+ +--------+--------+--------+ | Graft Soft Tissue 2x2in | | Right: | [employer] | | 03/04/ | [id number] | | Duragen Plus Cranial Dura | | Brain | LIFESCIENCE | | 2017 | / | | Bovine Collagen Matrix Patch | | | S | | | [id number] | | Resorbable Suturable - | | | | | | 27 | | [id number]: Qty: 1 on | | | | | | | | 12/22/2015 by Ophelia Frey, | | | | | | | | MD | | | | | | | + +------+--------+ +--------+--------+--------+ | Cover [place] .5mm 17mm | | Right: | [employer] [facility] | | | 421.52 | | Craniomaxillofacial Titanium | | Brain | | | | 7 / / | | Low Profile Nonsterile - | | | | | | | | [id number]: Qty: 3 on | | | | | | | | 12/22/2015 by Ophelia Frey, | | | | | | | | MD | | | | | | | + +------+--------+ +--------+--------+--------+ | 4-Hole PlateImplanted: Qty: 1 | | Right: | SY[employer]ES [facility] | | | 421.51 | | on 12/22/2015 by Marv Durand | | Head | | | | 2 / / | | MD Angeline | | | | | | | + +------+--------+ +--------+--------+--------+ + +------+--------+ +--------+--------+--------+ | Explanted | Type | Area | Manufacture | Device | Expira | Model | | | | | r | | tion | / | | | | | | Identi | Date | Serial | | | | | | fier | | / Lot | + +------+--------+ +--------+--------+--------+ | Clip Aneurysm L-Shape Mini | | Right: | DOMINIQUE MORENO | | | 45.720 | | Titanium Permanent Straight | | Brain | | | | / / | | 7mm Max Opening 6.1mm Closing | | | | | | | | Force 110g/1.08n - | | | | | | | | [id number]: Tk, | | | | | | | | MD Ophelia (Quantity not on | | | | | | | | file)Explanted: Qty: 1 on | | | | | | | | 12/22/2015 by Ophelia Frey, | | | | | | | | | | | | | | | + +------+--------+ +--------+--------+--------+ | Clip Aneurysm L-Shape Mini | | Right: | DOMIN[employer]QUE MORENO | | | 45.222 | | Titanium Temporary Curved 7mm | | Brain | | | | / / | | Max Opening 6.3mm Closing | | | | | | | | Force 70g/0.69n - | | | | | | | | [id number]: Tk, | | | | | | | | MD Ophelia (Quantity not on | | | | | | | | file)Explanted: Qty: 1 on | | | | | | | | 12/22/2015 by Ophelia Frey, | | | | | | | | | | | | | | | + +------+--------+ +--------+--------+--------+ Results Not on filefrom Last 3 Months Insurance + +--------+ +--------+-------+---------+ | Payer | Benefi | Subscriber | Type | Phone | Address | | | t Plan | ID | | | | | | / | | | | | | | Group | | | | | + +--------+ +--------+-------+---------+ | [employer] | [employer] | xxxxxxxxx | Agency | | | | SERVICE | | | | | | | | HEALTH | | | | | | | | | | | | | | SERVIC | | | | | | | E | | | | | + +--------+ +--------+-------+---------+ + +--------+ +--------+ + + | Guarantor Name | Accoun | Relation to | Date | Phone | Billing Address | | | t Type | Patient | of | | | | | | | | | | + +--------+ +--------+ + + | MIRIAN CORTEZ | Person | Self [birth year] | Home: | [address] | | | al/Fam | | 1940 | [phone] [place] [address] | | | david | | | [phone] | | + +--------+ +--------+ + +
--- OUTSIDE RECORDS SUMMARY | ~2018-12-18 | XMS | Clinical Summary ---
Demographics + + + | Address | [address] | | | [place] [address] | + + + | Home Phone | | + + + | Preferred Language | Unknown | + + + | Marital Status | | + + + | Spiritism Affiliation | Unknown | + + + | Race | Unknown | + + + | Ethnic Group | Unknown | + + + Author + + + | Author | [facility] | | | and [place] | + + + | Organization | [facility] | | | and [place] | + + + | Address | Unknown | + + + | Phone | Unavailable | + + + Support + + + + + | Name | Relationship | Address | Phone | + + + + + | Aashish Cortez | ECON | [place] | | | | | [phone] | | + + + + + | Cristian Cortez | ECON | [address] | | | | | [place] | | | | | [address] | | + + + + + Care Team Providers + +------+ + | Care Car Park Attendant Name | Role | Phone | + +------+ + | Casimiro Lopez DO | PP | | + +------+ + Allergies + + + + + + | Active Allergy | Reactions | Severity | Noted | Comments | | | | | Date | | + + + + + + | Cephalexin | | | 04/02/20 | | | | | | 15 | | + + + + + + | Erythromycin | | | 04/02/20 | | | | | | 15 | | + + + + + + | Penicillins | Hives | High | 10/07/19 | | | | | | 15 | | + + + + + + | Sulfa Antibiotics | Hives | High | 10/07/19 | | | | | | 15 | | + + + + + + Medications + + + +---------+------+------+-------+ | Medication | Sig | Dispensed | Refills | Star | End | Statu | | | | | | t | Date | s | | | | | | Date | | | + + + +---------+------+------+-------+ | exemestane | Take 1 tablet by | 30 | 5 | 02/03 | | Activ | | (AROMASIN) 25 MG | mouth Daily. | tablet | | 09/24 | | e | | tabletIndications: | | | | 15 | | | | Malignant neoplasm | | | | | | | | of breast (female), | | | | | | | | unspecified site | | | | | | | + + + +---------+------+------+-------+ | alendronate | Take 70 mg by mouth | | 0 | | | Activ | | (FOSAMAX) 70 mg | every 7 days. | | | | | e | | tablet | | | | | | | + + + +---------+------+------+-------+ | bismuth | Take 524 mg by mouth | | 0 | | | Activ | | subsalicylate (PEPTO | 4 times daily | | | | | e | | BISMOL) 262 mg | (before meals and | | | | | | | chewable tablet | nightly). Take 2 | | | | | | | | tablets 4 times | | | | | | | | daily | | | | | | + + + +---------+------+------+-------+ | folic acid 1 mg | Take 1 mg by mouth | | 0 | | | Activ | | tablet | Daily. | | | | | e | + + + +---------+------+------+-------+ | omeprazole | Take 20 mg by mouth | | 0 | | | Activ | | (PRILOSEC) 20 mg | every morning | | | | | e | | capsule | (before breakfast). | | | | | | + + + +---------+------+------+-------+ | lisinopril | Take 40 mg by mouth | | 0 | | | Activ | | (PRINIVIL,ZESTRIL) | Daily. | | | | | e | | 40 MG tablet | | | | | | | + + + +---------+------+------+-------+ | Levothyroxine | Take 25 mcg by mouth | | 0 | | | Activ | | Sodium 25 MCG CAPS | Daily. | | | | | e | + + + +---------+------+------+-------+ | Calcium-Vitamin D | Take 1 tablet by | | 0 | | | Activ | | 500-125 MG-UNIT TABS | mouth Daily. | | | | | e | + + + +---------+------+------+-------+ | rosuvastatin | Take 10 mg by mouth | | 0 | | | Activ | | (CRESTOR) 10 mg | nightly. | | | | | e | | tablet | | | | | | | + + + +---------+------+------+-------+ | aspirin 81 mg EC | Take 81 mg by mouth | | 0 | | | Activ | | tablet | Daily. | | | | | e | + + + +---------+------+------+-------+ Active Problems + + + | Problem | Noted Date | + + + | Pernicious anemia | | + + + | Pain in wrist | | + + + | Hypothyroidism | | + + + | Vitamin D deficiency | | + + + | Benign essential hypertension | | + + + | Allergic rhinitis | | + + + | Gastroesophageal reflux disease | | + + + | Psoriasis | | + + + + + | Overview: Severity moderate to severe | + + + +---+ | Hearing loss of right ear | | + +---+ | Perforation of tympanic membrane | | + +---+ | Cholelithiasis | | + +---+ | Uterine mass | | + +---+ + + | Overview: Mass of uterine adnexa, right 7cm | + + + +---+ | Abdominal pain | | + +---+ | Hematuria, undiagnosed cause | | + +---+ | Epigastric pain | | + +---+ | Lower abdominal pain | | + +---+ + + | Overview: Since 02/17/15 | + + + +---+ | Sciatica of right side | | + +---+ | Carcinoma in situ of right breast | | + +---+ | Venous stasis dermatitis of both lower extremities | | + +---+ + + | Overview: Dorsal foot bilateral | + + + +---+ | Renal disorder | | + +---+ + + | Overview: Associated with type II diabetes mellitus | + + + +---+ | Aseptic necrosis of medial femoral condyle | | + +---+ | Derangement of meniscus | | + +---+ | Vitamin B deficiency | | + +---+ | Cramp in lower leg | | + +---+ + + | Overview: Associated with rest | + + Family History + + +------+ + | Medical History | Relation | Name | Comments | + + +------+ + | Heart failure | Father | | | + + +------+ + | Cirrhosis | Mother | | | + + +------+ + + +------+--------+ + | Relation | Name | Status | Comments | + +------+--------+ + | Father | | | | + +------+--------+ + | Mother | | | | + +------+--------+ + Social History + +-------+ +--------+ + | Tobacco Use | Types | Packs/Day | Years | Date | | | | | Used | | + +-------+ +--------+ + | Former Smoker | | | | Started: 04/03/1960 | + +-------+ +--------+ + + + +---------+ + | Alcohol Use | Drinks/We | oz/Week | Comments | | | ek | | | + + +---------+ + | No | 0 | 0.0 | | | | Standard | | | | | drinks or | | | | | | | | | | equivalen | | | | | t | | | + + +---------+ + + + + | Sex Assigned at | Date Recorded | | | | + + + | Not on file | | + + + + + + + | Job Start Date | Occupation | Industry | + + + + | Not on file | Not on file | Not on file | + + + + + + + + | Travel History | Travel Start | Travel End | + + + + + + | No recent travel history available. | + + Last Filed Vital Signs + + + + | Vital Sign | Reading | Time Taken | + + + + | Blood Pressure | 136/61 | 10/31/20171427 PST | + + + + | Pulse | 69 | 10/31/20171427 PST | + + + + | Temperature | 36.3 C (97.4 F) | 10/31/20171427 PST | + + + + | Respiratory Rate | 16 | 10/31/20171427 PST | + + + + | Oxygen Saturation | 98% | 10/31/20171427 PST | + + + + | Inhaled Oxygen | - | - | | Concentration | | | + + + + | Weight | 61.6 kg (135 lb 12.9 | 10/31/2017 1428 PST | | | oz) | | + + + + | Height | 165.1 cm (5' 5") | 04/03/2015 1507 PDT | + + + + | Body Mass Index | 22.6 | 04/03/2015 1507 PDT | + + + + Plan of Treatment +--------+---------+ + + + | Date | Type | Specialty | Care Team | Description | +--------+---------+ + + + | 02/07/ | Office | | Harjit Obando | | | 2019 | Visit | | MD Jorge [address] | | | | | [address] [place] | | | | | | [place] [address] | | | | | | [phone] | | | | | | | | +--------+---------+ + + + + + + + + | Health [...] | + + + + + | Adult Annual | | | | | Wellness Visit | 5 | | | + + + + + | Vaccine: Influenza | | | | | (Season Ended) | 9 | | | + + + + + Procedures + +--------+ + + + | Procedure Name | Priori | Date/Time | Associated Diagnosis | Comments | | | ty | | | | + +--------+ + + + | IMAGING REPORT - | | 10/27/2018 | | Results for this | | EXTERNAL SCAN | | 0:00 PST | | procedure are in the | | | | | | results section. | + +--------+ + + + from Last 3 Months Results IMAGING REPORT - EXTERNAL SCAN (10/27/2018 0:00 PST) + + + | Narrative | Performed At | + + + | Ordered by an | | | unspecified provider. | | + + + from Last 3 Months Insurance + +--------+ +--------+ +---------+--------+ | Payer | Benefi | Subscriber | Effect | Phone | Address | Type | | | t Plan | ID | simon | | | | | | / | | Dates | | | | | | Group | | | | | | + +--------+ +--------+ +---------+--------+ | MEDICARE | MEDICA | [id number] | 03/05/20 | [phone] | | Medica | | | RE | | 07-Pre | 5 | | re | | | PART A | | sent | | | | + +--------+ +--------+ +---------+--------+ | [facility] | IHS | [id number] | | | | Indemn | | SERVICE | YELLOW | | 013-Pr | | | ity | | | HAWK | | esent | | | | + +--------+ +--------+ +---------+--------+ + +--------+ +--------+ + + | Guarantor Name | Accoun | Relation to | Date | Phone | Billing Address | | | t Type | Patient | of | | | | | | | | | | + +--------+ +--------+ + + | Bubba Cortez | Person | Self | [birth year] | | [address] | | | al/Fam | | 1940 | [phone] | [place] [address] | | | david | | | 6 (Home) | | + +--------+ +--------+ + + Advance Directives Patient has advance care planning documents on file. For more information, please contact:[facility] [place] [address]
--- OUTSIDE RECORDS SUMMARY | ~2018-12-18 | XMS | Clinical Summary ---
Demographics + + + | Address | [address] | | | [place] [address] | + + + | Home Phone | | + + + | Preferred Language | Unknown | + + + | Marital Status | | + + + | Latter Day Affiliation | Unknown | + + + | Race | Unknown | + + + | Ethnic Group | Unknown | + + + Author + + + | Author | [facility] | | | and [place] | + + + | Organization | [facility] | | | and [place] | + + + | Address | Unknown | + + + | Phone | Unavailable | + + + Support + + + + + | Name | Relationship | Address | Phone | + + + + + | Aashish Cortez | ECON | [place] | | | | | [address] | | + + + + + | Cristian Cortez | ECON | [address] | | | | | [place] | | | | | [address] | | + + + + + Care Team Providers + +------+ + | Care Puppy Trainer Name | Role | Phone | + [...] W | | | | | | [address] [place] | | | | | | [place] [address] | | | | | | [phone] | | | | | | | [...] +--------+ +---------+--------+ | MEDICARE | MEDICA | [id number] | 03/05/20 | [phone] | | Medica | | | RE | | 07-Pre | 5 | | re | | | PART A | | sent | | | | + +--------+ +--------+ +---------+--------+ | [facility] | IHS | [id number] | | | | Indemn | | [...] Person | Self | [birth year] | | [address] | | | al/Fam | | 1940 | [phone] | [place] [address] | | | david | | | 6 (Home) | | + +--------+ +--------+ + + Advance Directives Patient has advance care planning documents on file. For more information, please contact:[facility] [place] [address]
--- OUTSIDE RECORDS SUMMARY | ~2018-12-18 | XMS | Clinical Summary ---
Demographics + + + | Address | [address] | | | [place] [address] | + + + | Home Phone | | + + + | Preferred Language | Unknown | + + + | Marital Status | | + + + | Latter-Day Affiliation | Unknown | + + + | Race | Unknown | + + + | Ethnic Group | Unknown | + + + Author + + + | Author | [facility] | + + + | Organization | [facility] | + + + | Address [...] Team Providers + +------+ + | Care Volunteer Coordinator Name | Role | Phone | + [...] +------+-------+ + | MEDICARE | MEDICA | [id number] | | | [address] | | | RE | | | | [place] [address] | | | PART A | | | | | | | ONLY | | | | | + +--------+ +------+-------+ + | [facility] | YELLOW | [id number] | | | | | PLANS | [...] | Self | [birth year] | Home: | [address] | | | al/Fam | | 1940 | [phone] [place] [address] | | | david | | | 1874 | | + +--------+ +--------+ + +
--- OUTSIDE RECORDS SUMMARY | ~2018-12-18 | XMS | Clinical Summary ---
Demographics + + + | Address | [address] | | | [place] [address] | + + + | Home Phone | | + + + | Preferred Language | Unknown | + + + | Marital Status | | + + + | Advent Affiliation | LEROY | + + + [...] + | Cristian Cortez | ECON | [address] | | | | | [place] | | | | | [address] | | + + + + + | Rose Gonzalez | ECON | Unknown | | + + + + + | Aashish Cortez | ECON | Unknown | | + + + + + Care Team Providers + +------+ + | Care Carbider Name | Role | Phone | + +------+ + | Casimiro Lopez MD | PP | | + +------+ + Source Comments [facility] is fully live on both EpicCare Ambulatory and EpicCare InPatient.[facility] Allergies + + + + [...] Assessment & Plan: | | [facility] 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 [id number] neuro checksSBP <160Monitor | | groin site [...] home, which is | | non-formulary at [facility] today so no need to | [...] | | | | | | | [id number]: Qty: 15 | | | | | [...] | | | | | | | [id number]: Qty: 1 on | | | | | | | | 12/22/2015 by Ophelia Frey, | | | | | | | | MD | | | | | | | + +------+--------+ +--------+--------+--------+ | Graft Soft Tissue 2x2in | | Right: | [employer] | | 03/04/ | [id number] | | Duragen Plus Cranial Dura | | Brain | [employer] | | 2017 | / | | Bovine Collagen Matrix Patch | | | S | | | [id number] | | Resorbable Suturable - | | | | | | 27 | | [id number]: Qty: 1 on | | | | | | | | 12/22/2015 by Ophelia Frey, | | | | | | | | MD | | | | | | | + +------+--------+ +--------+--------+--------+ | Cover [place] Hole .5mm 17mm | | Right: | [facility] | | | 421.52 | | Craniomaxillofacial Titanium | | Brain | | | | 7 / / | | Low Profile Nonsterile - | | | | | | | | [id number]: Qty: 3 on | | | | | | | | 12/22/2015 by Ophelia Frey, | | | | | | | | MD | | | | | | | + +------+--------+ +--------+--------+--------+ | 4-Hole PlateImplanted: Qty: 1 | | Right: | [facility] | | | 421.51 | | on [...] | | | | | | | [id number]: Tk, | | | | | | [...] | | | | | | | [id number]: Tk, | | | | | | [...] | | | + +--------+ +--------+-------+---------+ | [facility] | [facility] | [phone] | Agency | | | [...] | Self | [birth year] | Home: | [address] | | | al/Fam | | 1940 | [phone] [place] [address] | | | david | | | 1874 | | + +--------+ +--------+ + +
[~2018-12-18 18:36] MED LIST changes: +ASPIRIN EC81 MG PO; +CALCIUM 600 +1 EAC3 PO; +CERAVE355 ML TOP; +ENSTILAR 0.005%60 GM TOP; +FLONASE ALLERG9.9 ML NAS; +FREESTYLE LANC1 EACH MISC; +FREESTYLE LITE1 EAC1 XX; +FREESTYLE LITE1 EAC2 MISC; +TALTZ AUTO80 MG/1 ML SUB-Q; +VITAMIN B-12500 MCG PO
--- OUTSIDE RECORDS SUMMARY | 2018-12-18 18:38 | XMS ---
PreManage Notification: MIRIAN REDD Security Biological Science Technician Events No recent Security Events currently on file CRITERIA MET - Group Notification CARE PROVIDERS DR DAMARIS VALDEZ Primary Care 12/04/2016-Current PHONE: [phone] Nohelia has no Care Guidelines for this patient. Madiha VISIT COUNT (12 MO.) 3 [facility] TOTAL 3 NOTE: Visits indicate total known visits. ED/UCC VISIT TRACKING (12 MO.) 12/18/2018 18:37 [facility] TYPE: Emergency COMPLAINT: - WEAKNESS, LEG SWELLING 08/27/2018 18:33 [facility] TYPE: Emergency COMPLAINT: - ABD PAIN DIAGNOSES: - Allergy status to penicillin - Personal history of malignant neoplasm of breast - Allergy to eggs - Allergy status to other antibiotic agents status - Other residential (current) drug therapy - custodial (current) use of aspirin - Allergy status to sulfonamides status - Right lower quadrant pain - Type 2 diabetes mellitus without complications - Essential (primary) hypertension - Lower abdominal pain, unspecified - Other nonmedicinal substance allergy status 05/06/2018 19:44 [facility] TYPE: Emergency COMPLAINT: - FEVER/VOMITING INPATIENT VISIT TRACKING (12 MO.) 05/06/2018 21:[address] [facility] TYPE: Medical Surgical COMPLAINT: - SEPSIS DIAGNOSES: - Other implementation coordinator (current) drug therapy - Psoriasis, unspecified - Allergy status to sulfonamides status - Unspecified place in hospital as the place of occurrence of the external cause - Hypocalcemia - Type 2 diabetes mellitus with hypoglycemia without coma - Hypomagnesemia - custodial (current) use of aspirin - Allergy status to other antibiotic agents status - Fatty (change of) liver, not elsewhere classified - Unspecified cirrhosis of liver - Personal history of transient ischemic attack (TIA), and cerebral infarction without residual deficits - Malignant neoplasm of unspecified site of right female breast - field mechanic (current) use of inhaled steroids - Fever, unspecified - custodial (current) use of aromatase inhibitors - Adverse effect of other systemic antibiotics, initial encounter - custodial (current) use of bisphosphonates - Sepsis due to Escherichia coli [E. coli] - Allergy status to penicillin - Essential (primary) hypertension [email or web address]
--- NOTE | 2018-12-19 16:56 | EKG ---
[facility] [address] [place], [place] [address] Signed Normal sinus rhythm Left axis deviation Left ventricular hypertrophy with QRS widening Cannot rule out Anterior infarct , age undetermined Abnormal ECG When compared with ECG of 06-MAY-2018 19:59, Sinus rhythm has replaced Electronic ventricular pacemaker Confirmed by LIDIA STANTON DO ([id number]) on 12/19/2018 4:55:50 PM Electronically Signed By: LIDIA STANTON DO 12/19/18 1656 PATIENT NAME: MIRIAN REDD Electrocardiogram DATE OF : 44 PHYSICIAN: LIDIA STANTON DO REPORT #: [id number] REPORT IS CONFIDENTIAL AND NOT TO BE RELEASED WITHOUT AUTHORIZATION
== END 2018-12-18 20:55 | disposition home or self-care (01) ==
LOC: ED 18:36
DX: R53.1 Weakness (principal); E11.9 Type 2 diabetes mellitus without complications; I10 Essential (primary) hypertension; Z88.0 Allergy status to penicillin; Z88.8 Allergy status to other drugs, medicaments and biological substances; Z91.018 Allergy to other foods; Z91.012 Allergy to eggs; Z79.899 Other long term (current) drug therapy; Z88.2 Allergy status to sulfonamides; Z88.1 Allergy status to other antibiotic agents; Z79.82 Long term (current) use of aspirin
CPT/HCPCS: 51701; 80053; 81001; 84443; 84484; 85025; 93005; 93010; 99285-25; J7030

== ENCOUNTER 2019-05-30 10:56 | Inpatient (IN) | payer MEDICARE, OTHER ==
[~2019-05-30] VITALS: Ht 165.1 cm; Wt 62.4 kg
[~2019-05-30 10:56] MED LIST changes: +CETRAXAL1 EACH OTIC; +CIPRO500 MG PO; +DEMADEX20 MG PO; +FERROUS SULFAT325 MG PO; +FLAGYL500 MG PO; +FUROSEMIDE20 MG PO; +LAMISIL AT12 G1 TP; +ZESTRIL5 MG PO
--- OUTSIDE RECORDS SUMMARY | 2019-05-30 10:58 | XMS ---
PreManage Notification: MIRIAN REDD Security Roving Frame Tender Events No recent Security Events currently on file CRITERIA MET - Group Notification - [facility] - Has Care Guidelines CARE PROVIDERS Name Unknown Alf Facility Current PHONE: [phone] CHYNA HUSSEIN Nurse Practitioner 12/19/2018-Current PHONE: [phone] DR DAMARIS VALDEZ Primary Care 12/04/2016-Current PHONE: [phone] Nohelia has no Care Guidelines for this patient. Care History Medical/Surgical 12/19/2018 [facility] \T\middot;\T\nbsp; PATIENT IS A [employer] MEMBER. \T\middot;\T\nbsp; PLEASE REFER PATIENT TO [facility] FOR NON EMERGENT MEDICAL NEEDS. \T\middot;\ T\nbsp; [facility] CAN SEE PATIENTS SAME DAY FOR APTS IF PATIENT CALLS FIRST THING IN THE MORNING. Madiha VISIT COUNT (12 MO.) 5 [facility] TOTAL 5 NOTE: Visits indicate total known visits. ED/UCC VISIT TRACKING (12 MO.) 05/30/2019 10:56 [facility] TYPE: Emergency COMPLAINT: - WEAKNESS 04/02/2019 11:22 [facility] TYPE: Emergency COMPLAINT: - WEAKNESS VOMITING 12/29/2018 18:42 [facility] TYPE: Emergency COMPLAINT: - L FLANK PAIN DIAGNOSES: - terminal gauger (current) use of aspirin - Other prison (current) drug therapy - Allergy to eggs - Personal history of malignant neoplasm of breast - Essential (primary) hypertension - Allergy status to other antibiotic agents status - Type 2 diabetes mellitus without complications - Allergy status to penicillin - Allergy to other foods - Psoriasis, unspecified - Personal history of transient ischemic attack (TIA), and cerebral infarction without residual deficits - Nausea with vomiting, unspecified - Diverticulosis of intestine, part unspecified, without perforation or abscess without bleeding - terminal gauger (current) use of insulin - Allergy status to sulfonamides status 12/18/2018 18:37 [facility] TYPE: Emergency COMPLAINT: - WEAKNESS, LEG SWELLING DIAGNOSES: - Other prison (current) drug therapy - Allergy status to other drugs, medicaments and biological substances status - Weakness - Allergy status to other antibiotic agents status - Allergy status to sulfonamides status - Allergy to other foods - Allergy status to penicillin - Type 2 diabetes mellitus without complications - Allergy to eggs - terminal gauger (current) use of aspirin - Essential (primary) hypertension 08/27/2018 18:33 [facility] TYPE: Emergency COMPLAINT: - ABD PAIN DIAGNOSES: - Allergy status to penicillin - Personal history of malignant neoplasm of breast - Allergy to eggs - Allergy status to other antibiotic agents status - Other intermediate school teacher (current) drug therapy - nursing home (current) use of aspirin - Allergy status to sulfonamides status - Right lower quadrant pain - Type 2 diabetes mellitus without complications - Essential (primary) hypertension - Lower abdominal pain, unspecified - Other nonmedicinal substance allergy status INPATIENT VISIT TRACKING (12 MO.) 04/02/2019 14:08 [facility] TYPE: Medical Surgical COMPLAINT: - SEPSIS DIAGNOSES: - nursing home (current) use of antibiotics - Essential (primary) hypertension - Anuria and oliguria - Allergy status to sulfonamides status - Cellulitis of left upper limb - Unspecified cirrhosis of liver - nursing home (current) use of antibiotics - Essential (primary) hypertension - Do not resuscitate - Anemia in other chronic diseases classified elsewhere - Severe sepsis with septic shock - Other intermediate school teacher (current) drug therapy - Unspecified cirrhosis of liver - Type 2 diabetes mellitus without complications - Anuria and oliguria - Psoriasis, unspecified - Sepsis, unspecified organism - Type 2 diabetes mellitus without complications - Psoriasis, unspecified - Allergy status to penicillin - Personal history of transient ischemic attack (TIA), and cerebral infarction without residual deficits - Allergy status to other antibiotic agents status - Personal history of malignant neoplasm of breast - Allergy status to penicillin - Personal history of transient ischemic attack (TIA), and cerebral infarction without residual deficits - Personal history of malignant neoplasm of breast - Severe sepsis with septic shock - Allergy status to sulfonamides status - Allergy status to other antibiotic agents status - Do not resuscitate - Cellulitis of left upper limb - Other prison (current) drug therapy [email or web address]
--- NOTE | 2019-05-30 20:05 | EKG ---
[facility] [address] [place] [address] Signed Normal sinus rhythm Right bundle branch block Left anterior fascicular block Bifascicular block Minimal voltage criteria for LVH, may be normal variant Anterior infarct (cited on or before 06-MAY-2018) Abnormal ECG When compared with ECG of 18-DEC-2018 19:04, (RBBB and left anterior fascicular block) is now present Questionable change in initial forces of Anterior leads Confirmed by NIKHIL TERAN MD ([id number]) on 05/30/2019 8:05:41 PM Electronically Signed By: NIKHIL TERAN MD 05/30/192004 PATIENT NAME: MIRIAN REDD Electrocardiogram DATE OF : 44 PHYSICIAN: NIKHIL TERAN MD REPORT #: [id number] REPORT IS CONFIDENTIAL AND NOT TO BE RELEASED WITHOUT AUTHORIZATION
--- NOTE | 2019-06-02 13:55 | EKG ---
[facility] [address] [place] [address] Signed Supraventricular tachycardia with premature supraventricular complexes Left axis deviation Inferior infarct , age undetermined ST \T\ T wave abnormality, consider anterolateral ischemia Abnormal ECG When compared with ECG of 30-MAY-2019 11:21, premature supraventricular complexes are now present Vent. rate has increased BY 56 BPM (RBBB and left anterior fascicular block) is no longer present Confirmed by LIDIA STANTON DO ([id number]) on 06/02/2019 1:54:52 PM Electronically Signed By: LIDIA STANTON DO 06/02/19 1355 PATIENT NAME: MIRIAN REDD Electrocardiogram DATE OF : 44 PHYSICIAN: LIDIA STANTON DO REPORT #: [id number] REPORT IS CONFIDENTIAL AND NOT TO BE RELEASED WITHOUT AUTHORIZATION
== END 2019-06-03 18:36 | disposition swing bed (61) | DRG 871 ==
LOC: ED 10:56 → CCU 13:45 → MS 06-01 12:10 → CCU 06-02 20:36
PROVIDERS: ADMIT Internal Medicine
PROC: 05HY33Z Insertion of Infusion Device into Upper Vein, Percutaneous Approach (ICD-10-PCS; 2019-05-31)
PROC: 30233N1 Transfusion of Nonautologous Red Blood Cells into Peripheral Vein, Percutaneous Approach (ICD-10-PCS; principal; 2019-05-31 13:00)
DX: A40.3 Sepsis due to Streptococcus pneumoniae (principal); J13 Pneumonia due to Streptococcus pneumoniae; R65.20 Severe sepsis without septic shock; J96.01 Acute respiratory failure with hypoxia; N17.9 Acute kidney failure, unspecified; I47.2 Ventricular tachycardia; E46 Unspecified protein-calorie malnutrition; D64.9 Anemia, unspecified; E11.649 Type 2 diabetes mellitus with hypoglycemia without coma; E03.9 Hypothyroidism, unspecified; E78.5 Hyperlipidemia, unspecified; E83.42 Hypomagnesemia; Z66 Do not resuscitate; Z51.5 Encounter for palliative care; Z79.899 Other long term (current) drug therapy; Z68.22 Body mass index [BMI] 22.0-22.9, adult; Z85.3 Personal history of malignant neoplasm of breast; Z86.73 Personal history of transient ischemic attack (TIA), and cerebral infarction without residual deficits; Z88.1 Allergy status to other antibiotic agents; Z88.0 Allergy status to penicillin; Z88.2 Allergy status to sulfonamides
CPT/HCPCS: 36415; 36569; 51702; 71045; 80048; 80053; 81001; 82570; 83036; 83605; 83735; 83880; 84300; 84540; 85025; 86850; 86870; 86900; 86901; 86902; 86922; 87040; 87070; 87077; 87088; 87186; 87205; 87449; 87899; 93005; 93010; 94640; 94667; 94668; 94762; 94799; 97110; 97116; 97162; 97530; 99285-25; J1650; J1940; J1956; J2405; J3370; J3475; J3490; J7030; J7060; J7120; J7121; P9016; P9047

== ENCOUNTER 2019-06-03 18:36 | Inpatient (IN) | payer MEDICARE, OTHER ==
[~2019-06-03] VITALS: Ht 165.1 cm; Wt 62.4 kg
--- NOTE | 2019-06-03 19:15 | NUR ---
REPORT RECIEVED FROM CCU FUNMI BARRETT. PT ADMISSION STATUS CHANGED TO SWING BED ON COMFORT MEASURES AT THIS TIME. FAMILY AT BEDSIDE. HOSPICE TRAY PROVIDED.
--- NOTE | 2019-06-03 19:58 | NUR ---
VAPOTHERM REPLACED WITH 2 L NC. PT GIVEN ANTI NAUSEA MEDICAITON FOR ANOTHER EPISODE OF EMESIS ( SEE EMAR). PAIN PATCH PLACED. GOWN CHANGED. MULTIPLE FAMILY MEMEMBER REMAIN AT BEDSIDE. PT ROUSABLE BUT QUICKLY FALLS BACK TO SLEEP.
--- NOTE | 2019-06-03 20:06 | NUR ---
PT RESTING WITH EYES CLOSED. BREATHING EVEN AND UNLABORED. RESPIRATORY RATE OF 11 BREATHS A MINUTE. FAMILY WIHT PATIENT AT BEDSIDE.
--- NOTE | 2019-06-03 20:43 | NUR ---
PT HAS RESPIRATIONS OF ZERO AT THIS TIME. NO PULSES PALPATED. NO APICAL HEART RATE NOTED. DR TERAN IN ROOM AT THIS TIME. PT PRONOUNCED BY DR TERAN AT 2043
--- NOTE | 2019-06-03 20:45 | NUR ---
DOOR FRAME BUILDER NOTIFIED OF PATIENT PASSING AT THIS TIME.
--- NOTE | 2019-06-03 20:53 | NUR ---
[facility] CALLED IN AT THIS TIME BY CCU RN
--- NOTE | 2019-06-03 22:50 | NUR ---
MIDLINE, STROUD CATHETER, AND BEAUTY CULTURIST APPRENTICE REMOVED FROM PATIENT AT THIS TIME. [facility] ARRIVED AT THIS TIME TO TRANSPORT PATIENT. FAMILY HAS LEFT ROOM AT THIS TIME. PT LEFT FACILITY WITH [facility] AT 2255.
--- NOTE | 2019-06-03 22:57 | NUR ---
I was called in at 2151 due to the PT passing. When I arrived the family was conducting a [place] ritual and indicated that they did not want tint layer services. I assured the family memember that I was here to support them however I can and work with home when they were ready. I helped with the paper work and called the donor line. When they were finished we call [facility] at 2214. [facility] arrived and removed the PT by 2049.
== END 2019-06-03 22:55 | DRG 189 ==
LOC: CCU 18:36
PROVIDERS: ADMIT Internal Medicine
DX: J96.01 Acute respiratory failure with hypoxia (principal); J18.1 Lobar pneumonia, unspecified organism; N17.9 Acute kidney failure, unspecified; Z51.5 Encounter for palliative care; E11.9 Type 2 diabetes mellitus without complications; E03.9 Hypothyroidism, unspecified; E78.5 Hyperlipidemia, unspecified; Z66 Do not resuscitate; Z79.899 Other long term (current) drug therapy; Z88.1 Allergy status to other antibiotic agents; Z88.0 Allergy status to penicillin; Z88.8 Allergy status to other drugs, medicaments and biological substances; Z88.2 Allergy status to sulfonamides
CPT/HCPCS: J2550